=== PATIENT | female | born 1990 | race Caucasian/White ===

== ENCOUNTER 2018-12-11 23:19 | Emergency (ER) | payer BC ==
[~2018-12-11] VITALS: Ht 160 cm; Wt 71.8 kg
[~2018-12-11 23:19] MED LIST: MOTRIN 800800 MG/TAB PO; PERCOCET 325 MG1 TA2 PO; PHENERGAN25 MG RC; PRENATAL1 TA7 PO; STOOL SOFTENER100 M2 PO; TYLENOL PM EXTR1 TA1 PO
[2018-12-11 23:21] VITALS: TEMP 97.4
[2018-12-11] MEDS ORDERED: CYMBALTA 30MG30 MG PO (23:24)
[2018-12-11] MEDS ORDERED: LINZESS72 MCG PO (23:24)
[2018-12-11] MEDS ORDERED: CAMILA0.35 MG PO (23:24)
[2018-12-11] MEDS ORDERED: PAMELOR 25MG25 MG PO (23:24)
[2018-12-11 23:40] LABS: BASO # 0.1 (0.0-0.2); BASO % 0.7 % (0.0-2.0); EOS # 0.2 (0.0-0.7); GRAN # 5.1 (1.4-6.5); GRAN % 53.6 % (42.2-75.2); HEMATOCRIT 40.4 % (37.0-47.0); HEMOGLOBIN 12.9 g/dl (12.5-16.0); LYMPH # 3.5 (1.2-3.4); LYMPH % 36.2 % (20.0-51.0); MEAN CELL VOLUME 86 fl (80.0-100.0); MEAN CORPUSCULAR HEMOGLOBIN 28 pg (27.0-31.0); MEAN CORPUSCULAR HGB CONC 32 g/dl (33.0-37.0); MEAN PLATELET VOLUME 10.1 fl (7.4-10.4); MONO # 0.7 (0.1-0.6); MONO % 7.2 % (1.7-9.3); PLATELET COUNT 346 K/mm3 (130-400); RED BLOOD COUNT 4.69 M/mm3 (4.10-5.30); REDCELL DISTRIBUTION WIDTH-CV 13.2 % (11.5-14.5)
[2018-12-11 23:47] LABS: COLLECTION METHOD CLEAN CATCH
[2018-12-11 23:54] LABS: ALBUMIN 4.2 gm/dL (3.5-5.0); BILIRUBIN,TOTAL 0.2 mg/dL (0.0-1.0); C-REACTIVE PROTEIN 1.1 mg/dL (0.0-0.9); CALCIUM 8.9 mg/dL (8.4-10.2); CREATININE, serum 0.73 (0.52-1.25); POTASSIUM 4.3 mmol/L (3.4-5.0); TOTAL PROTEIN 8.6 gm/dL (6.4-8.2)
[2018-12-11 23:59] LABS: MUCOUS Present /lpf; PH 5 (5-8); URINE APPEARANCE Clear; URINE BACTERIA None Seen /hpf; URINE BILIRUBIN Negative (NEGATIVE); URINE BLOOD Negative (NEGATIVE); URINE COLOR Yellow; URINE GLUCOSE Negative (NEGATIVE); URINE KETONE Negative (NEGATIVE); URINE LEUKOCYTE ESTERASE 1+ (NEGATIVE); URINE NITRATE Negative (NEGATIVE); URINE PROTEIN(semi-quant) Negative (NEGATIVE); URINE RBC 0-2 /hpf; URINE UROBILINOGEN Negative (NEGATIVE)
[2018-12-12] MEDS ORDERED: ZOFRAN ODT4 MG PO (00:18)
[2018-12-12] MEDS ORDERED: MACROBID 1100 MG/CAP PO (00:18)
[2018-12-12 00:53] VITALS: BP 126/83; PULSE 83
== END 2018-12-12 00:53 | disposition home or self-care (01) ==
LOC: COL.ER 23:19
PROVIDERS: Physician Assistant
DX: N39.0 Urinary tract infection, site not specified (principal); R19.7 Diarrhea, unspecified
CPT/HCPCS: J2405; J3010; J7030

== ENCOUNTER 2019-01-06 05:53 | Day surgery (SDC) | payer BC ==
[~2019-01-06] VITALS: Ht 160 cm; Wt 68.9 kg
[~2019-01-06 05:53] MED LIST changes: +CAMILA0.35 MG PO; +CYMBALTA 30MG30 MG PO; +LINZESS72 MCG PO; +MACROBID 1100 MG/CAP PO; +PAMELOR 25MG25 MG PO; +ZOFRAN ODT4 MG PO
[2019-01-06 06:19] VITALS: BP 125/83; PULSE 90; TEMP 97.9
[2019-01-06] MEDS ORDERED: CYMBALTA 60MG60 MG PO (06:23)
[2019-01-06] MEDS ORDERED: STOOL SOFTENER100 M2 PO (06:24)
[2019-01-06] MEDS ORDERED: MASON NATURAL2000 IU PO (06:25)
[2019-01-06] MEDS ORDERED: FIBERCON PO (06:25)
[2019-01-06] MEDS ORDERED: PROBIOTIC-MAJOR PO (06:25)
[2019-01-06] MEDS ORDERED: MAGNESIUM CITR100 MG PO (06:26)
[2019-01-06 07:45] VITALS: BP 125/83; PULSE 91; TEMP 97.7
--- NOTE | 2019-01-06 07:45 | NUR ---
Patient brought back to [facility]. Alert and oriented. Ambulated to chair without difficulty. Denies any pain or nausea. Vital signs WNL. States she would just like water at this time. Tolerating well. Friend Fritz at bedside. Call lafleur within reach, will continue to monitor.
[2019-01-06 08:00] VITALS: BP 122/84; PULSE 76
--- NOTE | 2019-01-06 08:00 | NUR ---
Patient vital signs WNL. Tolerating drink well, requesting muffin at this time. Will continue to monitor.
[2019-01-06 08:15] VITALS: BP 121/71; PULSE 97
--- NOTE | 2019-01-06 08:15 | NUR ---
Patient states that she is feeling well and ready to go home. Vital signs WNL. Tolerating food and drink well. Will continue to monitor.
--- NOTE | 2019-01-06 08:30 | NUR ---
Dishcarge instructions reviewed with patient and friend. All questions answered. IV removed per orders. Patient to get dressed at this time.
--- NOTE | 2019-01-06 08:40 | NUR ---
Patient brought down to lobby via wheel chair. To be driven home by friend Fritz.
== END 2019-01-06 08:40 | disposition home or self-care (01) ==
LOC: SDCO 05:53
DX: K92.1 Melena (principal); K59.00 Constipation, unspecified; M79.7 Fibromyalgia
CPT/HCPCS: J2250; J2405; J3010; J7030

== ENCOUNTER → 2021-05-08 | Outpatient (CLI) | payer BC ==
[~2021-05-08] MED LIST changes: +CYMBALTA 60MG60 MG PO; +FIBERCON PO; +MAGNESIUM CITR100 MG PO; +MASON NATURAL2000 IU PO; +PROBIOTIC-MAJOR PO
== END ==
LOC: COL.CARD 11:15
DX: R03.0 Elevated blood-pressure reading, without diagnosis of hypertension (principal)

== ENCOUNTER 2023-05-26 22:30 | Outpatient (CLI) | payer MEDICAID ==
[~2023-05-26] VITALS: Ht 160 cm; Wt 85.5 kg
[2023-05-26 22:42] VITALS: BP 160/99; PULSE 77
--- NOTE | 2023-05-26 22:45 | NUR ---
PT OF , , 37/2, PRESENTS FOR ELEVATED BLOOD PRESSURE AND HEADACHE. PT STATES SHE HAS BEEN CHECKING HER BLOOD PRESSURES AT HOME DO TO HAVING A HEADACHE AND THEY HAVE BEEN RUNNING 150S/90S. CONFIRMS MOVEMENT, DENIES ANY BLEEDING OR LEAKING OF ANY FLUIDS. STATES THE ONLY COMPLICATION WITH THIS IS GESTATIONAL DIABETES.
[2023-05-26 22:58] VITALS: BP 150/92; PULSE 87
[2023-05-26 23:15] VITALS: BP 150/93; PULSE 80; TEMP 98
[2023-05-26 23:28] VITALS: BP 158/95; PULSE 82
--- NOTE | 2023-05-26 23:32 | NUR ---
NOTIFIED THAT PATIENT OF , , 37/2, PRESENTS FOR INCREASED BLOOD PRESSURE. BLOOD PRESSURES SINCE ARRIVAL READ TO . REACTIVE STRIP. PT IS EDDIE MILDLY EVERY 4-5 MINUTES AND STATES SHE DOES NOT FEEL THEM, DECLINES CERVICAL EXAM. DENIES ANY BLEEDING OR LEAKING OF ANY FLUIDS. IS COMPLICATED BY [facility], INSULIN DEPENDENT. PT REPORTS A MILD HEADACHE THAT DID NOT IMPROVE WITH TYLENOL. ORDERS TO GET A CBC, CMP, UA, AND TO CALL HER WITH THE RESULTS.
[2023-05-26 23:45] VITALS: BP 150/96; PULSE 86
[2023-05-26 23:55] LABS: COLLECTION METHOD CLEAN CATCH
[2023-05-26 23:59] VITALS: BP 139/84; PULSE 83
[2023-05-27 00:02] LABS: BASO % 0.3 % (0.0-2.0); EOS # 0.1 K/mm3 (0.0-0.7); EOS % 1.2 % (0.0-4.0); GRAN # 7.1 K/mm3 (1.4-6.5); GRAN % 61.5 % (42.2-75.2); LYMPH # 3.7 K/mm3 (1.2-3.4); LYMPH % 31.7 % (20.0-51.0); MEAN CELL VOLUME 83 fl (80.0-100.0); MEAN CORPUSCULAR HEMOGLOBIN 28 pg (27-31); MEAN CORPUSCULAR HGB CONC 34 g/dl (33.0-37.0); MEAN PLATELET VOLUME 10.8 fl (7.4-10.4); MONO # 0.6 K/mm3 (0.1-0.6); MONO % 4.9 % (1.7-9.3); PLATELET COUNT 267 K/mm3 (130-400); RED BLOOD COUNT 4.31 M/mm3 (4.10-5.30); REDCELL DISTRIBUTION WIDTH-CV 14.4 % (11.5-14.5)
[2023-05-27 00:05] LABS: HEMATOCRIT 35.6 % (37.0-47.0)
[2023-05-27 00:13] LABS: ALBUMIN 2.8 gm/dL (3.5-5.0); BILIRUBIN,TOTAL 0.3 mg/dL (0.2-1.2); CALCIUM 8.6 mg/dL (8.4-10.2); CREATININE, serum 0.6 mg/dL (0.57-1.11); POTASSIUM 3.2 mmol/L (3.5-4.5); TOTAL PROTEIN 6.6 gm/dL (6.2-8.1)
[2023-05-27 00:15] VITALS: BP 144/93; PULSE 79
[2023-05-27 00:18] LABS: SQUAMOUS EPITHELIAL 0-2 /hpf (0-10); URINE APPEARANCE Clear (CLEAR/HAZY); URINE BACTERIA Rare /hpf (NONE SEEN); URINE BLOOD Negative (NEGATIVE); URINE COLOR Yellow (YELLOW); URINE GLUCOSE Negative (NEGATIVE); URINE KETONE 1+ (NEGATIVE); URINE NITRATE Negative (NEGATIVE); URINE PROTEIN(semi-quant) Negative (NEGATIVE); URINE RBC 0-2 /hpf (0-2); URINE UROBILINOGEN 0.2 E.U/dL (0.2-1.0)
[2023-05-27] MEDS ORDERED: MAG-OX 400400 MG/TAB PO (00:18)
[2023-05-27] MEDS ORDERED: HUMULIN N PE100 U/ML SQ ×2 (00:18)
[2023-05-27] MEDS ORDERED: PNV-SELECT1 TAB PO (00:19)
[2023-05-27] MEDS ORDERED: FORTAMET500 M1 PO (00:19)
--- NOTE | 2023-05-27 00:23 | NUR ---
NOTIFIED OF PATIENTS LAB RESULTS AND LAST 3 BLOOD PRESSURES READ TO HER. ORDERS THAT PATIENT MAY BE DISCHARGED TO HOME. GIVE HER THE SUPPLIES TO COLLECT A 24 HOUR URINE STARTING IN THE MORNING AND TO CALL THE OFFICE TO MAKE AN APPOINTMENT FOR WEDNESDAY MORNING TO BRING HER URINE IN AND HAVE HER BLOOD PRESSURE CHECKED. ORDERS TO TELL THE PATIENT TO REPORT BLOOD PRESSURES OVER 160/100.
[2023-05-27 00:28] VITALS: BP 139/90; PULSE 76
[2023-05-27 00:46] VITALS: BP 172/99; PULSE 83
== END 2023-05-27 00:55 | disposition home or self-care (01) ==
LOC: LDRO 22:30 → LDR 22:58 → LDRO 05-27 00:55
PROVIDERS: Student in an Organized Health Care Education/Training Program
DX: O16.3 Unspecified maternal hypertension, third trimester (principal); Z3A.37 37 weeks gestation of pregnancy
CPT/HCPCS: OP